=== PATIENT | male | born 1950 | race Asian ===

== ENCOUNTER 2019-01-18 06:42 | Day surgery (SDC) | payer OTHER ==
[~2019-01-18] VITALS: Ht 165.1 cm; Wt 63.5 kg
[2019-01-18 07:08] VITALS: BP 151/96
[2019-01-18 10:56] VITALS: BP 148/87
== END 2019-01-18 10:40 | disposition home or self-care (01) ==
LOC: DS 06:42 → OR 08:00 → DS 10:40
PROVIDERS: Internal Medicine Gastroenterology
PROC: 0DB68ZZ Excision of Stomach, Via Natural or Artificial Opening Endoscopic (ICD-10-PCS; principal; 2019-01-18 08:00)
PROC: 3E0G8GC Introduction of Other Therapeutic Substance into Upper GI, Via Natural or Artificial Opening Endoscopic (ICD-10-PCS; 2019-01-18 08:00)
DX: K29.50 Unspecified chronic gastritis without bleeding (principal); B96.81 Helicobacter pylori [H. pylori] as the cause of diseases classified elsewhere; K31.7 Polyp of stomach and duodenum; R11.2 Nausea with vomiting, unspecified; R63.0 Anorexia; R63.4 Abnormal weight loss
CPT/HCPCS: 43235; J1200; J1610; J2250; J2310; J3010; J3490